=== PATIENT | male | born 1960 | race Caucasian/White ===

== ENCOUNTER 2025-03-05 08:13 | Day surgery (SDC) | payer OTHER ==
[2025-03-01 12:54] VITALS: BP 153/78; PULSE 64; RESP 14; TEMP 97.9
[2025-03-05] VITALS (14 sets, daily range): BP systolic 121–144; BP diastolic 67–92; PULSE 61–75; RESP 13–17; TEMP 97.4–97.6
[~2025-03-05] VITALS: Ht 172.7 cm; Wt 116.3 kg
[~2025-03-05 08:13] MED LIST: ATOR40TA71 PO; ETAN50CA3 SQ; FLUT1BLS8 IH; HYDR200T75 PO; LORA10TA7 PO; LOSA1TAB37 PO; METF-444 PO; MONT-39 PO; SEMA0.5P SQ; TAMS-55 PO
[2025-03-05] MEDS: 0.9%NACL 1000ML 1,000 ML IV ONE (09:35)
[2025-03-05] MEDS ORDERED: MIDAZOLAM HCL 1 MG/ML 2ML VIAL ONE (11:23)
[2025-03-05] MEDS ORDERED: SUCCINYLCHOLINE CHLORIDE 20 MG/ML 10 ML VIAL ONE (11:23)
[2025-03-05] MEDS ORDERED: LIDOCAINE PF 100MG/5ML (2%) SYRINGE 5ML ONE (11:23)
[2025-03-05] MEDS ORDERED: SUGAMMADEX SODIUM 200 MG/2 ML VIAL IV ONE ×2 (11:26→13:38)
--- NOTE | 2025-03-05 13:27 | OP ---
Operative Note: DATE OF PROCEDURE: 03/05/25 SURGEON: OLGA GRAHAM MD ORCHID TRANSPLANTER: [] ANESTHESIA: [] GENERAL ANESTHESIOLOGIST/ENGINE INSPECTOR: [] PREOPERATIVE DIAGNOSIS: [] Right inguinal hernia POSTOPERATIVE DIAGNOSIS: [] The same SYNOPSIS: [] PROCEDURE: [] Robotic right inguinal hernia ESTIMATED BLOOD LOSS: [] Minimal INDICATIONS: [] DESCRIPTION OF PROCEDURE: [] With the patient prepped in usual fashion and a Gomes catheter placed we inserted the Veress needle in the left upper quadrant abdomen insufflated. Supraumbilical incision was created and a millimeter da Daniel trocar was inserted. Under direct vision I remove the needle and I placed 2 da Daniel trochars 1 in each the side of the abdomen. I found the patient had an umbilical hernia with some omentum going to the hernia and this was taken down in order to have better access with the instruments and the camera. Then we placed the patient in Trendelenburg and I docked the robot. I went to the console and observe a right inguinal hernia. This seems to be of the direct type. Using cautery I scored the peritoneum and I brought him down bluntly. I exposed the Werner's ligament and the directarea I reduce a large hernia sac preserving the spermatic cords and visualizing the vas deferens and spermatic cords. The hernia was reduced without any problems. After observing the myopectineal line and the Werner's ligament I placed a 3 D MAX MId mid mesh on the right side. This was a large one. I placed it over the Werner's ligament covering couple centimeters below and the indirect space. The sac with the hernia and associated lipoma was placed over the mesh. I then closed the peritoneum with a 2 oh V-Loc. No anchoring of the mesh was necessary. We did a closure continues and dropped the pressure to 8 cm. After this was done I remove the needle and I remove all the trochars under direct vision. The skin was closed with 4-0 Monocryl and Dermabond. We placed 20 cc local anesthesia OLGA GRAHAM MD Mar 05, 2025 13:27
--- NOTE | 2025-03-05 14:24 | NUR ---
POST-RECOVERY LOWER ANTERIOR ABDOMEN 3 INCISIONS AND 1 SCRATCH. DERMABOND TO 3 INCISIONS. DERMABOND TO 1 SCRATCH. INCISIONS DRY AND INTACT. NO ACTIVE BLEEDING OR DRAINAGE TO 3 INCISIONS. NO ACTIVE BLEEDING OR DRAINAGE NOTED TO SCRATCH. NO REDNESS OR SWELLING NOTED TO SCRATCH. SLIGHT REDNESS TO 3 INCISIONS NO SWELLING TO INCISIONS.
== END 2025-03-05 14:58 | disposition home or self-care (01) ==
LOC: DAH 08:13
PROVIDERS: ATTEND Surgery
DX: K40.90 Unilateral inguinal hernia, without obstruction or gangrene, not specified as recurrent (principal); I12.9 Hypertensive chronic kidney disease with stage 1 through stage 4 chronic kidney disease, or unspecified chronic kidney disease; E11.22 Type 2 diabetes mellitus with diabetic chronic kidney disease; N18.2 Chronic kidney disease, stage 2 (mild); N40.0 Benign prostatic hyperplasia without lower urinary tract symptoms; M06.9 Rheumatoid arthritis, unspecified; E78.00 Pure hypercholesterolemia, unspecified; J45.909 Unspecified asthma, uncomplicated; Z90.49 Acquired absence of other specified parts of digestive tract; Z82.49 Family history of ischemic heart disease and other diseases of the circulatory system; Z88.8 Allergy status to other drugs, medicaments and biological substances; Z79.899 Other long term (current) drug therapy
CPT/HCPCS: 49650; 82948 ×2; A4223 ×2; A4600; A6260; A4663; J7030 ×2; A4344; A4215 ×2; J0690 ×3; J3010 ×2; J1171; J1100; J0330; J0665 ×2; J3490 ×3; J2003; J2250; J2704; J2405; C1781; A4930; A4213; A4222; A4221; A4216